=== PATIENT | female | born 1955 | race Caucasian/White ===

== ENCOUNTER → 2023-08-25 17:22 | Outpatient (REF) | payer MEDICARE, OTHER, SELFPAY | LOC: CLAB 17:22 | PROVIDERS: ATTENDING PHYSICIAN Orthopaedic Surgery; FAMILY PHYSICIAN Internal Medicine | DX: M18.11 Unilateral primary osteoarthritis of first carpometacarpal joint, right hand (principal) | CPT/HCPCS: 88304 ==

== ENCOUNTER → 2023-10-26 07:33 | Outpatient (REF) | payer MEDICARE, OTHER, SELFPAY ==
[2023-10-26 10:28] LABS: % Basophils 1.3 % (0-2); % Eosinophils 8.8 % (0-6); % Immature Granulocytes 0.8 % (0-0.5); % Monocytes 10.3 % (1.7-9.3); % Neutrophils 62.8 % (42.2-75.2); Absolute Basophils 0.1 10^3/uL (0-0.2); Absolute Eosinophils 0.4 10^3/uL (0-0.7); Absolute Lymphocytes 0.6 10^3/uL (1.2-3.4); Absolute Monocytes 0.4 10^3/uL (0.1-0.6); Absolute Neutrophils 2.5 10^3/uL (1.4-6.5); Hematocrit 39.7 % (37.0-47.0); Mean Corp Hgb Conc. 32.7 g/dL (33.0-37.0); Mean Corpuscular Hgb 28.7 pg (27.0-31.0); Mean Corpuscular Volume 87.6 fL (81.0-99.0); Mean Platelet Volume 10.7 fL (7.4-10.4); Nucleated Red Blood Cells % 0 %; Platelet Count 238 10^3/uL (130-400); Red Blood Cell Count 4.53 10^6/uL (4.20-5.40); Red Cell Dist. Width 12.7 % (11.5-14.5)
[2023-10-26 10:44] LABS: ALT (SGPT) 24 U/L (0-35); AST (SGOT) 27 U/L (14-36); Albumin 4.1 g/dl (3.5-5.0); Alkaline Phosphatase 75 U/L (38-126); Blood Urea Nitrogen 20 mg/dl (7-17); Calcium 9.6 mg/dl (8.4-10.2); Carbon Dioxide 29 mmol/L (22-30); Chloride 105 mmol/L (98-107); Glucose 91 mg/dl (70-99); HDL Cholesterol 73 mg/dl; Potassium 3.7 mmol/L (3.5-5.1); Sodium 137 mmol/L (135-145); Total Bilirubin 0.6 mg/dl (0.2-1.3); Total Protein 6.7 g/dl (6.3-8.2); Triglyceride 83 mg/dl (10-149); Very Low Density Lipoprotein 16 mg/dl (0-30); eGFR > 60.00
[2023-10-26 10:53] LABS: LDL Cholesterol, Calculated 82 mg/dl; Total Cholesterol 171 mg/dl (50-199)
[2023-10-26 10:55] LABS: Vitamin D, 25-OH*** 63.9 ng/mL (30-80)
== END ==
LOC: HWLAB 07:33
PROVIDERS: ATTENDING PHYSICIAN Internal Medicine
DX: I10 Essential (primary) hypertension (principal); E55.9 Vitamin D deficiency, unspecified; I70.90 Unspecified atherosclerosis
CPT/HCPCS: 36415; 80053; 80061; 82306; 85025

== ENCOUNTER → 2023-11-16 12:47 | Outpatient (REF) | payer MEDICARE, OTHER, SELFPAY | LOC: HWRAD 12:47 | PROVIDERS: ATTENDING PHYSICIAN Internal Medicine | DX: E04.1 Nontoxic single thyroid nodule (principal) | CPT/HCPCS: 76536 ==

== ENCOUNTER → 2024-01-02 10:55 | Outpatient (REF) | payer MEDICARE, OTHER, SELFPAY | LOC: HWWDC 10:55 | PROVIDERS: ATTENDING PHYSICIAN Internal Medicine | DX: Z12.31 Encounter for screening mammogram for malignant neoplasm of breast (principal) | CPT/HCPCS: 77063; 77067 ==

== ENCOUNTER → 2025-01-02 10:32 | Outpatient (REF) | payer MEDICARE, OTHER, SELFPAY | LOC: HWWDC 10:32 | PROVIDERS: ATTENDING PHYSICIAN Obstetrics & Gynecology Gynecology; FAMILY PHYSICIAN Nurse Practitioner Gerontology | DX: Z12.31 Encounter for screening mammogram for malignant neoplasm of breast (principal) | CPT/HCPCS: 77063; 77067 ==

== ENCOUNTER → 2025-01-28 09:48 | Outpatient (REF) | payer MEDICARE, OTHER, SELFPAY | LOC: HWRAD 09:48 | PROVIDERS: ATTENDING PHYSICIAN Obstetrics & Gynecology Gynecology; FAMILY PHYSICIAN Nurse Practitioner Gerontology | DX: Z15.09 Genetic susceptibility to other malignant neoplasm (principal) | CPT/HCPCS: 76830; 76856 ==

== ENCOUNTER 2025-03-04 06:27 | Day surgery (SDC) | payer MEDICARE, OTHER, SELFPAY | END 2025-03-04 10:45 | disposition home or self-care (01) | LOC: GI 06:27 | PROVIDERS: ATTENDING PHYSICIAN Internal Medicine | DX: Z12.11 Encounter for screening for malignant neoplasm of colon (principal); K64.4 Residual hemorrhoidal skin tags; K57.30 Diverticulosis of large intestine without perforation or abscess without bleeding; K64.8 Other hemorrhoids; Z15.09 Genetic susceptibility to other malignant neoplasm; K63.5 Polyp of colon | CPT/HCPCS: 45385; 88305 ==

== ENCOUNTER 2025-05-26 06:28 | Day surgery (SDC) | payer MEDICARE, OTHER, SELFPAY | END 2025-05-26 10:48 | disposition home or self-care (01) | LOC: GI 06:28 | PROVIDERS: ATTENDING PHYSICIAN Internal Medicine | DX: K44.9 Diaphragmatic hernia without obstruction or gangrene (principal); Z15.060 Genetic susceptibility to colorectal cancer; Z87.19 Personal history of other diseases of the digestive system; K20.80 Other esophagitis without bleeding | CPT/HCPCS: 43239; 88305; 88342 ==

== ENCOUNTER 2025-06-11 01:32 | Inpatient (IN) | payer MEDICARE, OTHER, SELFPAY ==
[2025-06-10 16:27] VITALS: BP 164/91
--- NOTE | 2025-06-10 17:29 | ED.GENMED ---
History of Present Illness
<Marlene Rdz PA-C - Last Filed: 06/10/25 23:46>
General
Chief Complaint: Abdominal Pain
Source: patient
Exam Limitations: none
Time Seen by Provider: 06/10/25 17:06
History of Present Illness
History of Present Illness:
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 Patient reports generalized abdominal discomfort which has been ongoing for the past 3 days.
She increased her fluid intake and symptoms seem to get better but are worsening today. She had an episode of vomiting after eating a sandwich today and continues to feel nauseous. She also reports feeling bloated and constipated. Last bowel
movement was 3 days ago. She took 4 pills of Dulcolax today without any improvement. She called her personnel clerk today and has an appointment scheduled in 3 days but decided to come to the ED due to her worsening symptoms. She denies any
difficulty urinating, fevers, chills, chest pain, shortness of breath. No prior abdominal surgeries. She had an endoscopy on 05/26 which showed a short segment of Lamb's esophagus and a small hiatal hernia.
Phy Exam
<Marlene Rdz PA-C - Last Filed: 06/10/25 23:46>
General Physical Exam
General Presentation: well appearing and no apparent distress
General Skin: warm and dry
General Habitus: normal and elderly
General Mental: alert
ENT Exam
ENT Exam: normocephalic
Pulmonary Exam
Pulmonary Exam: no respiratory distress
Gastrointestinal Exam
Gastrointestinal Exam: soft and other (Abdomen soft, mildly distended. Normoactive bowel sounds. +Tenderness to epigastrium, LUQ, and LLQ. No rebound or guarding.)
Neurological Exam
Neurological Exam: alert
Misty Coma Scale
Eye Opening: Spontaneous
Verbal Response: Oriented
Motor Response: Obeys Commands
GCS Total Score: 15
Skin Exam
Skin Exam: normal color and warm/dry
Psychiatric Exam
Psychiatric Exam: normal mood/affect
<Fuad Mann MD - Last Filed: 06/10/25 22:56>
Misty Coma Scale
GCS Total Score: 15
Course
<Marlene Rdz PA-C - Last Filed: 06/10/25 23:46>
Orders/Labs/Results
Orders:
Orders
06/10/25 17:26
Electrocardiogram (*1) Urgent
Reason for Study: Abdominal Pain
CT Abd/pel W Iv And Oral Contr Urgent
Comment:
Reason For Exam: generalized abd pain, bloating, constipation
EKG- Treatment ONCE
Iohexol [Omnipaque] See Protocol PO NOW STA
Ondansetron Injectable [Zofran] 4 mg IV NOW STA
06/10/25 18:03
Complete Blood Count/With Diff Urgent
Comprehensive Metabolic Panel Urgent
Lipase Urgent
Troponin I Urgent
06/10/25 18:44
0.9% Sodium Chloride 500 ml [Nss] 500 ml IV BOLUS
Potassium Chloride [KCl] 40 meq PO NOW STA
06/10/25 21:53
0.9% Sodium Chloride 500 ml [Nss] 500 ml IV BOLUS
Ondansetron Injectable [Zofran] 4 mg IV NOW STA
06/10/25 21:54
ColoRectal Surgery Consult Urgent
Consulting Provider: Marquez Garner
Was physician already notified: Yes
06/10/25 21:59
Bupivacaine Pf 0.5% [Sensorcaine 0.5% Single Dose] 30 ml .ROUTE .STK-MED ONE
Dexamethasone Pf [Decadron] 10 mg .ROUTE .STK-MED ONE
06/10/25 22:01
Fentanyl Citrate/Pf [Sublimaze] 25 mcg IV [id number] PRN
HYDROmorphone [Dilaudid] 0.25 mg IV PACU-Q5MPRN PRN
HYDROmorphone [Dilaudid] 0.5 mg IV PACU-Q5MPRN PRN
Ondansetron Injectable [Zofran] 4 mg IV PACU-ONCEPRN PRN
Prochlorperazine [Compazine] 5 mg IV PACU-ONCEPRN PRN
Notify MD As Directed
Notify physician if: for SDS patients with known or suspected sleep obstructive sleep apnea, monitor in the
PACU.
Notify MD for any apneic/desaturation episodes
O2 Therapy [RESP] Urgent
Titrate/Wean O2 to maintain O2 sat greater than (%): 92
Special Instructions: -Provide supplemental oxygen to achieve O2 sat of 92% or greater.
-After 15 min, may wean O2 and discontinue if patient is able to maintain O2 sat of 92%
or greater during recovery period.
If patient is a discharge home, without oxygen therapy, notify anestheiologist if
unable to maintain O2 SAT of 92% or greater on room air for MD clearance.
06/10/25 22:04
Lactate Level [Lactic Acid] Urgent
06/10/25 22:15
Normosol (Mult Electrolytes) [Normosol-R/Plasmalyte-A] 1,000 ml IV PER PROTOCOL
06/10/25 23:04
Fentanyl Citrate/Pf [Sublimaze] 100 mcg .ROUTE .STK-MED ONE
06/10/25 23:06
Dexamethasone Sod Phosphate [Decadron] 20 mg .ROUTE .STK-MED ONE
Lidocaine HCl/Pf [Xylocaine-Mpf 1% Vial] 50 mg .ROUTE .STK-MED ONE
Ondansetron Injectable [Zofran] 4 mg .ROUTE .STK-MED ONE
Phenylephrine HCl/0.9% NaCl [Maulik-Synephrine] 1,000 mcg .ROUTE .STK-MED ONE
Propofol [Diprivan] 20 ml .ROUTE .STK-MED
Rocuronium [place] [Rocuronium] 50 mg .ROUTE .STK-MED ONE
Succinylcholine Chloride [Succinylcholine] 200 mg .ROUTE .STK-MED ONE
ePHEDrine SULFATE [Emerphed] 50 mg .ROUTE .STK-MED ONE
06/10/25 23:12
Piperacillin/Tazo 3.375 Gram [Zosyn] 3.375 gram in 50 ml .ROUTE .STK-MED
Abnormal Lab Results
06/10/25
18:03
Absolute Neuts (auto) 7.2 H 10^3/uL
(1.4-6.5)
Absolute Lymphs (auto) 0.4 L 10^3/uL
(1.2-3.4)
Neutrophils % 90.0 H %
(42.2-75.2)
Lymphocytes % 4.4 L %
(20.5-51.1)
Sodium 131 L mmol/L
(135-145)
Potassium 3.1 L mmol/L
(3.5-5.1)
Chloride 92 L mmol/L
(98-107)
Glucose 112 H mg/dl
(70-99)
06/10/25 18:03
06/10/25 18:03
Vital Signs
Initial and Last Documented VS:
Initial Vital Signs
Temp Pulse Resp BP Pulse Ox
98.1 F 91 20 164/91 98
06/10/25 16:27 06/10/25 16:27 06/10/25 16:27 06/10/25 16:27 06/10/25 16:27
Last Documented Vital Signs
Temp Pulse Resp BP Pulse Ox
98.7 F 86 24 137/69 96
06/10/25 22:10 06/10/25 22:30 06/10/25 22:30 06/10/25 22:00 06/10/25 22:30
<uFad Mann MD - Last Filed: 06/10/25 22:56>
Orders/Labs/Results
Orders:
Orders
06/10/25 17:26
Electrocardiogram (*1) Urgent
Reason for Study: Abdominal Pain
CT Abd/pel W Iv And Oral Contr Urgent
Comment:
Reason For Exam: generalized abd pain, bloating, constipation
EKG- Treatment ONCE
Iohexol [Omnipaque] See Protocol PO NOW STA
Ondansetron Injectable [Zofran] 4 mg IV NOW STA
06/10/25 18:03
Complete Blood Count/With Diff Urgent
Comprehensive Metabolic Panel Urgent
Lipase Urgent
Troponin I Urgent
06/10/25 18:44
0.9% Sodium Chloride 500 ml [Nss] 500 ml IV BOLUS
Potassium Chloride [KCl] 40 meq PO NOW STA
06/10/25 21:53
0.9% Sodium Chloride 500 ml [Nss] 500 ml IV BOLUS
Ondansetron Injectable [Zofran] 4 mg IV NOW STA
06/10/25 21:54
ColoRectal Surgery Consult Urgent
Consulting Provider: Marquez Garner
Was physician already notified: Yes
06/10/25 21:59
Bupivacaine Pf 0.5% [Sensorcaine 0.5% Single Dose] 30 ml .ROUTE .STK-MED ONE
Dexamethasone Pf [Decadron] 10 mg .ROUTE .STK-MED ONE
06/10/25 22:01
Fentanyl Citrate/Pf [Sublimaze] 25 mcg IV [id number] PRN
HYDROmorphone [Dilaudid] 0.25 mg IV PACU-Q5MPRN PRN
HYDROmorphone [Dilaudid] 0.5 mg IV PACU-Q5MPRN PRN
Ondansetron Injectable [Zofran] 4 mg IV PACU-ONCEPRN PRN
Prochlorperazine [Compazine] 5 mg IV PACU-ONCEPRN PRN
Notify MD As Directed
Notify physician if: for SDS patients with known or suspected sleep obstructive sleep apnea, monitor in the
PACU.
Notify MD for any apneic/desaturation episodes
O2 Therapy [RESP] Urgent
Titrate/Wean O2 to maintain O2 sat greater than (%): 92
Special Instructions: -Provide supplemental oxygen to achieve O2 sat of 92% or greater.
-After 15 min, may wean O2 and discontinue if patient is able to maintain O2 sat of 92%
or greater during recovery period.
If patient is a discharge home, without oxygen therapy, notify anestheiologist if
unable to maintain O2 SAT of 92% or greater on room air for MD clearance.
06/10/25 22:04
Lactate Level [Lactic Acid] Urgent
06/10/25 22:15
Normosol (Mult Electrolytes) [Normosol-R/Plasmalyte-A] 1,000 ml IV PER PROTOCOL
06/10/25 23:04
Fentanyl Citrate/Pf [Sublimaze] 100 mcg .ROUTE .STK-MED ONE
06/10/25 23:06
Dexamethasone Sod Phosphate [Decadron] 20 mg .ROUTE .STK-MED ONE
Lidocaine HCl/Pf [Xylocaine-Mpf 1% Vial] 50 mg .ROUTE .STK-MED ONE
Ondansetron Injectable [Zofran] 4 mg .ROUTE .STK-MED ONE
Phenylephrine HCl/0.9% NaCl [Maulik-Synephrine] 1,000 mcg .ROUTE .STK-MED ONE
Propofol [Diprivan] 20 ml .ROUTE .STK-MED
Rocuronium [place] [Rocuronium] 50 mg .ROUTE .STK-MED ONE
Succinylcholine Chloride [Succinylcholine] 200 mg .ROUTE .STK-MED ONE
ePHEDrine SULFATE [Emerphed] 50 mg .ROUTE .STK-MED ONE
06/10/25 23:12
Piperacillin/Tazo 3.375 Gram [Zosyn] 3.375 gram in 50 ml .ROUTE .STK-MED
Abnormal Lab Results
06/10/25
18:03
Absolute Neuts (auto) 7.2 H 10^3/uL
(1.4-6.5)
Absolute Lymphs (auto) 0.4 L 10^3/uL
(1.2-3.4)
Neutrophils % 90.0 H %
(42.2-75.2)
Lymphocytes % 4.4 L %
(20.5-51.1)
Sodium 131 L mmol/L
(135-145)
Potassium 3.1 L mmol/L
(3.5-5.1)
Chloride 92 L mmol/L
(98-107)
Glucose 112 H mg/dl
(70-99)
06/10/25 18:03
06/10/25 18:03
Vital Signs
Initial and Last Documented VS:
Initial Vital Signs
Temp Pulse Resp BP Pulse Ox
98.1 F 91 20 164/91 98
06/10/25 16:27 06/10/25 16:27 06/10/25 16:27 06/10/25 16:27 06/10/25 16:27
Last Documented Vital Signs
Temp Pulse Resp BP Pulse Ox
98.7 F 86 24 137/69 96
06/10/25 22:10 06/10/25 22:30 06/10/25 22:30 06/10/25 22:00 06/10/25 22:30
Niralilt;Marlene Rdz PA-C - Last Filed: 06/10/25 23:46>
MDM/Problems Addressed
Differential Diagnosis Includes:
69yoF here with abd pain, distention, and constipation x 3 days. Worsening today and now has vomiting. She is hypertensive but otherwise stable vital signs. Abdomen is mildly distended without signs of peritonitis. Differential diagnosis includes
but is not limited to: Constipation, fecal impaction, SBO, diverticulitis
Initial ED plan: Check abdominal labs, troponin/EKG, and CT abdomen with IV/p.o. contrast. IV Zofran and fluid bolus for symptoms.
<Marlene Rdz PA-C - Last Filed: 06/10/25 23:46>
*Pulse Oximetry
SaO2: 98
Oxygen Mode of Delivery: Room air
Patient hypoxic: no
*EKG
Interpreted by ED Provider?: Yes
EKG Intrepretation Date: 06/10/25
Heart Rate: 75
Rate: normal
Rhythm: sinus
[place]: normal axis
Interval: normal interval
QRS Pattern: normal QRS
Ischemia: non-specific ST changes
*Critical Care Note
Total Time (30-74mins, 75-104mins- exclusive of procedures): Not Applicable
<Marlene Rdz PA-C - Last Filed: 06/10/25 23:46>
Update Note
Update Note:
CT shows findings compatible with a cecal volvulus. Case discussed with colorectal surgeon, Dr. Garner. Patient will be taken to the OR tonight for colectomy. Patient and daughter updated at bedside.
ED Attending Note
<Marlene Rdz PA-C - Last Filed: 06/10/25 23:46>
-
Portions of this chart may have been created with voice recognition software.� Occasional wrong word or��sound alike� substitutions may have occurred due to the inherent limitations of voice recognition software.
<Fuad Mann MD - Last Filed: 06/10/25 22:56>
ED Attending Note
Patient seen and examined by attending physician: Yes
ED Attending Note:
I have seen and evaluated the patient with a [id number] encounter. I have spoken to the advance practicer provider and involved in the medical history, the physical exam, medical decision making.
Evaluation and management service: agree unless noted differently below.
Results interpretation: agree unless noted differently below.
Focused HPI: 69-year-old female with history as noted presents for evaluation of constipation and abdominal pain over the past few days associated with nausea and bloating.
Physical exam: Awake and alert, nontoxic. Hypertensive but otherwise normal vitals. Abdomen soft, mildly distended, diffuse tenderness but not peritoneal.
Medical Decision Makin-year-old female presents with abdominal pain with constipation and nausea, bloating. Labs here were significant for mild hypokalemia. CT shows findings concerning for cecal volvulus. PA discussed with colorectal
surgery, patient will need OR for colectomy. Admit for continued management.
Discharge Plan
Departure
Patient Disposition: Admit
Date of Disposition: 06/10/25
Time of Disposition: 21:53
Presentation/result/management discussed w/ accepting MD/DO: Dr. Garner
Discharge Problem:
Cecal volvulus
Referrals:
Rut Renteria NP [Family Provider, General]
Interventions
Interventions:
*General Assessment Last Done: 06/10/25 16:27
*Neglect/Abuse Screening Last Done: 06/10/25 16:27
*ED COVID-19 Vaccine History Last Done: 06/10/25 22:10
*ED Influenza Vaccine History Last Done: 06/10/25 22:10
[facility] Fall Risk Assessment Tool Last Done: 06/10/25 21:41
*Risk Screen - Suicide (C-SSRS) Last Done: 06/10/25 22:30
*Nursing Disposition Last Done: 06/10/25 23:06
RN-Zywqan-Owszcuuogp Assessment Last Done: 06/10/25 18:18
Discharge Date and Time
Discharge Date/Time: 06/10/25 23:06
Print Language: TAJIK
[2025-06-10] MEDS: OMNIPAQUE 50 ML PO (18:03)
[2025-06-10] MEDS: ZOFRAN 4 MG IV ×2 (18:03→21:57)
[2025-06-10 18:12] LABS: Hematocrit 39.5 % (37.0-47.0); Hemoglobin 13.7 g/dL (12.0-16.0); Mean Corp Hgb Conc. 34.7 g/dL (33.0-37.0); Mean Corpuscular Volume 84.6 fL (81.0-99.0); Nucleated Red Blood Cells % 0 %; Platelet Count 246 10^3/uL (130-400); Red Cell Dist. Width 12.6 % (11.5-14.5)
[2025-06-10 18:18] VITALS: BMI 28.9
[2025-06-10 18:40] LABS: ALT (SGPT) 17 U/L (0-35); AST (SGOT) 24 U/L (14-36); Albumin 4.6 g/dl (3.5-5.0); Alkaline Phosphatase 88 U/L (38-126); Blood Urea Nitrogen 14 mg/dl (7-17); Calcium 9.4 mg/dl (8.4-10.2); Carbon Dioxide 29 mmol/L (22-30); Chloride 92 mmol/L (98-107); Estimated Creatinine Clearance 84 ml/min; Glucose 112 mg/dl (70-99); Lipase 186 U/L (23-300); Potassium 3.1 mmol/L (3.5-5.1); Sodium 131 mmol/L (135-145); Total Protein 7.3 g/dl (6.3-8.2); eGFR > 60.00
[2025-06-10 18:57] LABS: Troponin I < 0.012 ng/ml
[2025-06-10] MEDS: KCL 40 MEQ PO (18:59)
[2025-06-10] MEDS: NSS 500 IV ×2 (19:00→21:57)
[2025-06-10 20:50] VITALS: BP 149/75
[2025-06-10 21:41] VITALS: BP 140/73
[2025-06-10 22:00] VITALS: BP 137/69
--- NOTE | 2025-06-10 23:02 | W.PN.ADMIT ---
Addendum entered and electronically signed by Marquez Garner MD 06/10/25 23:25:
Other risks also discussed included anastomotic issues and potential for stoma.
Original Note:
Progress Note - Admit
Progress Note - Admit
Full H and P to be dictated.
Assessment/Plan: 69-year-old fairly healthy female with a known diagnosis of Easton syndrome with acute cecal volvulus confirmed on CT scan with resultant abdominal pain and distention as well as nausea and vomiting. CT shows a distended (10 cm)
cecum and left upper quadrant and was read as cecal volvulus. No pneumatosis. Vitals and blood work are reasonable and she is not an extremis. She has moderate distention of the abdomen on exam. Has mild epigastric tenderness. I discussed
situation with the patient and her family at the bedside. I recommended an open right colectomy. Risks and benefits were discussed. Risks described included but not limited to bleeding, infection, ureteral injury, bowel or solid organ injury,
hernia formation, recurrence of the volvulus, and anesthetic risks. She has agreed to proceed. I did discuss that elective prophylactic subtotal colectomy with synchronous hysterectomy is sometimes considered for Easton syndrome, but my leaning it
not to pursue either here and now. I did touch base with Dr. Gamble (her GI) and Dr. Godwin (loan consultant solutions operator) regarding the circumstances and they concurred. Anticipate med surg postoperatively.
[2025-06-11] VITALS (13 sets, daily range): BP systolic 111–150; BP diastolic 61–81; PULSE 83; BMI 29.7
--- NOTE | 2025-06-11 01:05 | W.IMMPOSTOP ---
Surgical Immed Post Op Note
-
Primary Surgeon: Suzanne Garner MD
Assisting Surgeon: none
Pre-op Diagnosis: cecal volvulus
Post-op Diagnosis: same
Procedure Performed: right colectomy
Anesthesia Type: general plus local
Specimen / Cultures: right colon
Estimated Blood Loss: 30 cc
Complications: no immediate
Operative Findings: distended volvulized non-perforated cecum/R colon
NGT in place--confirmed to be in stomach intraoperatively.
Sainz in bladder.
Will send to med surg.
--- NOTE | 2025-06-11 02:00 | PTCARENOTE ---
[facility]. Pt AAOx3, vss. Admission assessment completed. NGT attached to low intermittent suction per order. Sainz draining clear yellow urine. Pt c/o 07/29 with movement. IVF initiated per order. Pt oriented to room,
call nj within reach, bed locked and in lowest position. Plan of care reviewed with pt and family at bedside. All questions answered. Care ongoing.
[2025-06-11] MEDS: NORMOSOL-R/PLASMALYTE-A 1000 IV ×3 (02:15→23:58)
[2025-06-11] MEDS: TORADOL 10 MG IV ×4 (02:15→20:28)
[2025-06-11] MEDS: OFIRMEV 100 IV ×4 (05:14→23:49)
[2025-06-11] MEDS: ZOSYN 50 IV ×3 (05:35→17:21)
[2025-06-11 06:39] LABS: Hematocrit 34.8 % (37.0-47.0); Hemoglobin 12.5 g/dL (12.0-16.0); Mean Corp Hgb Conc. 35.9 g/dL (33.0-37.0); Mean Corpuscular Volume 82.1 fL (81.0-99.0); Nucleated Red Blood Cells % 0 %; Platelet Count 215 10^3/uL (130-400); Red Cell Dist. Width 12.2 % (11.5-14.5)
[2025-06-11 07:04] LABS: Blood Urea Nitrogen 10 mg/dl (7-17); Calcium 8.1 mg/dl (8.4-10.2); Carbon Dioxide 24 mmol/L (22-30); Chloride 96 mmol/L (98-107); Estimated Creatinine Clearance 85 ml/min; Glucose 130 mg/dl (70-99); Magnesium 2.0 mg/dl (1.6-2.3); Potassium 3.1 mmol/L (3.5-5.1); Sodium 128 mmol/L (135-145); eGFR > 60.00
--- NOTE | 2025-06-11 08:15 | W.PN.CRS1 ---
Today's Communication / Plan
-
Replace K.
Continue current measures.
OOB.
Lovenox.
Assessment/Plan
-
POD 0/1.
1. good pain control. Await bowel function.
2. vitals reasonable. Hypokalemia with K of 3.1. Will replace with K rider.
3. continue estevez and NGT.
4. OOB.
5. Lovenox this evening.
Subjective Data
Procedure
R colectomy 06/11/25 (finished morning of 06/11/25)
Subjective Data
Date of Service: June 11, 2025
Pain control reasonable.
No flatus.
Objective Data
-
Vital Signs
Temp Pulse Resp BP Pulse Ox
99.3 F 78 16 124/64 95
06/11/25 07:35 06/11/25 07:35 06/11/25 07:35 06/11/25 07:35 06/11/25 07:35
Intake & Output
06/10/25 06/11/25 06/12/25
06:59 06:59 06:59
Intake Total 1380 / 1380
Output Total 150 / 150
Balance 1230 / 1230
Intake:
IV fluids (Total) 1200 / 1200
IV piggybacks 150 / 150
Amount instilled into GI Tube ( 30 / 30
Total)
[place] Sump 30 / 30
Output:
Gastrointestinal tube output ( 75 / 75
Total)
[place] Sump 75 / 75
Urine, Estevez 75 / 75
Lab Results
06/11/25 06:08
06/11/25 06:08
Physical Exam
-
General: No Acute Distress
Chest: Clear
Cardiovascular: Regular Rate & Rhythm
Abdomen: Soft, Distended (mild) and Tender (mild incisional)
Extremities: No Calf Tenderness
Skin: Warm and Good Color
Incision: No Skin Erythema and Other (some shadowing (expected with martell))
[2025-06-11] MEDS: NSS (PRESERVATIVE FREE) 10 ML IV (08:36)
[2025-06-11] MEDS: PROTONIX IV 40 MG IV (08:36)
[2025-06-11] MEDS: KCL 270 MEQ IV (08:37)
[2025-06-11] MEDS: VALIUM INJECTION 2 MG IV (09:34)
[2025-06-11] MEDS: CRESTOR PO (10:40)
[2025-06-11] MEDS: LOVENOX 40 MG SC (17:21)
[2025-06-11] MEDS: OLOPATADINE 0.1% OPHTHALMIC SOLUTION 1 DROP OPHTH (20:30)
[2025-06-12] VITALS (60 sets, daily range): BP systolic 95–149; BP diastolic 49–77; BMI 29.8
[2025-06-12] MEDS: ZOSYN 50 IV (00:09)
[2025-06-12 01:23] LABS: Glucose - Point of Care 148 mg/dl (70-99)
--- NOTE | 2025-06-12 01:36 | W.PN.UPDATE ---
Update Note
Progress Note Update
OPERA SINGER
-Patient passed out/ diaphoretic/ pale after passing a bm with a huge amount of blood while she is using the bsc.
-Patient was arousable by the time of OPERA SINGER arrived to the room. BP 100/61. hr 68.
-Abdomen is soft non tender on the exam.
-2units of blood ordered , I liter NSS bolus open wide. Stat CBC, type & screen ordered.
-[place] animal control officer contacted and new recommendations received to give TXA 1 gm, transfer to ICU, and Surgeon/Dr German is coming to see the patient. Daughter at bedside and updated.
--- NOTE | 2025-06-12 01:48 | RR ---
Addendum entered by Rosario Perez RN 06/12/25 02:19:
Pt passed over 1L of burgundy liquid via rectum
Original Note:
Pt passed moderate amount of burgundy liquid w/clots via rectum. Expressed the desire to get on BSC. Assisted to BSC x2, pt began passing copious amount of liquid via rectum. Vagaled, diaphoretic, and sudden change in color --> extremely pale.
PICK UP OPERATOR initiated. Able to arouse patient, assisted back to bed. EKG and accucheck obtained. BP 103/70 HR 68, 92% on RA.
A Rapid Response was called on this patient, please see Rapid Response form.
[2025-06-12 01:49] LABS: Hematocrit 26.0 % (37.0-47.0); Hemoglobin 9.0 g/dL (12.0-16.0); Mean Corp Hgb Conc. 34.6 g/dL (33.0-37.0); Mean Corpuscular Volume 83.6 fL (81.0-99.0); Platelet Count 223 10^3/uL (130-400); Red Cell Dist. Width 12.6 % (11.5-14.5)
[2025-06-12] MEDS: TRANEXAMIC ACID 100 IV (01:53)
[2025-06-12 01:57] LABS: APTT 27.1 Sec (23.4-35.0); INR 1.35; PT 16.4 Sec (11.4-14.6)
[2025-06-12] MEDS: NSS 1000 IV (02:04)
--- NOTE | 2025-06-12 02:10 | PTCARENOTE ---
RR called on pt, this RN responded to RR. Pt in bed, pale went to the BR had a large bloody BM. Tsf to ICU. Pt is AAOx3, anxious. NSR on the monitor. Received pt on 3L NC O2 sat 97%, lungs diminished/coarse. Right nare NGT, to low intermittent
suction. Sainz in place, hygiene provided. Midline incision dressing assessed by Dr. German. Tranexamic acid given. 2 units PRBCs ordered. CHG bath provided. SCDs and TEDs in place. Daughter at bedside. Call nj in reach. Safe environment maintained.
[2025-06-12 02:12] LABS: Blood Urea Nitrogen 14 mg/dl (7-17); Calcium 7.5 mg/dl (8.4-10.2); Carbon Dioxide 25 mmol/L (22-30); Chloride 103 mmol/L (98-107); Estimated Creatinine Clearance 73 ml/min; Glucose 129 mg/dl (70-99); Magnesium 2.4 mg/dl (1.6-2.3); Potassium 3.3 mmol/L (3.5-5.1); Sodium 132 mmol/L (135-145); eGFR > 60.00
--- NOTE | 2025-06-12 02:33 | W.PN.UPDATE ---
Update Note
Progress Note Update
Informed by [place] DRILLER MULTIPLE SPINDLE that patient had a rapid due to large bloody bowel movement, appeared pale and nauseous and had syncopal episode. Bowel movement occurred on a commode and patient was immediately transferred to the bed. Stat labs sent. Given
TXA and 2 PRBC ordered, liter bolus hung. Repeat Hb 9.0. Vitals at that time were BP 100/60, HR 68. Patient was seen and examined. Currently, feels a little nauseous, but suspects it is related to her anxiety. Denies abdominal pain. Denies
dizziness or lightheadedness. This was her first BM since the surgery. No BMs since the occurence. BP 100/70, HR 70, afebrile, ABD soft, mildly tender near incision, nondistended, Aquacel dressing with bloody strikethrough but stable.
- Suspect that patient had vasovagal symptoms related to large bloody BM; I am less concerned about active bleeding as vitals have been stable over the last hour and no further blood per rectum, but will need to be closely monitored
�Hold Lovenox and Toradol; continue with PRBC x 2; repeat Hb every 6 hours until no suspicion for further bleeding; coags checked and WNL
�Continue n.p.o. with IVF
�Continue close monitoring with continuous vitals in the ICU
�Discussed with [place] DRILL[employer]IP[employer] SP[employer]LE, nurse, patient and patient's daughter; I warned the patient that her next bowel movements will likely be bloody as well, but will hopefully be less bloody with each subsequent BM; if they continue to be mostly blood, may
need a repeat procedure, such as colonoscopy versus surgery; however, for anastomotic bleeding, this is rare as well as most bleeding stops with nonoperative measures
[2025-06-12] MEDS: KCL 270 MEQ IV (03:16)
--- NOTE | 2025-06-12 03:26 | PTCARENOTE ---
1st unit PRBCs hanging, 15 min VS check complete, VSS.
--- NOTE | 2025-06-12 05:40 | PTCARENOTE ---
2nd unit PRBCs hanging, 15 min VS check complete, VSS.
[2025-06-12 06:40] LABS: Hematocrit 26.2 % (37.0-47.0); Hemoglobin 9.3 g/dL (12.0-16.0); Mean Corp Hgb Conc. 35.5 g/dL (33.0-37.0); Mean Corpuscular Volume 83.4 fL (81.0-99.0); Nucleated Red Blood Cells % 0 %; Platelet Count 202 10^3/uL (130-400); Red Cell Dist. Width 12.7 % (11.5-14.5)
[2025-06-12] MEDS: NSS (PRESERVATIVE FREE) 10 ML IV (07:45)
[2025-06-12] MEDS: PROTONIX IV 40 MG IV (07:46)
--- NOTE | 2025-06-12 08:33 | PTCARENOTE ---
Received pt awake and alert.+GUZMAN.Speech appropriate.Denies pain at this time.SR noted.# 2 PRBC transfusion completed.Decreased breath sounds bibasilar.POX 95% RA.NPO.NGT intact to intermittent suction.No BM.Sainz draining gama urine.Midline
incision intact with old shadowing on dressing.Pt's daughter at bedside.Plan of care discussed.
[2025-06-12 08:43] LABS: Hematocrit 28.1 % (37.0-47.0); Hemoglobin 9.9 g/dL (12.0-16.0)
[2025-06-12 09:26] LABS: Blood Urea Nitrogen 15 mg/dl (7-17); Calcium 7.3 mg/dl (8.4-10.2); Carbon Dioxide 27 mmol/L (22-30); Chloride 107 mmol/L (98-107); Estimated Creatinine Clearance 85 ml/min; Glucose 95 mg/dl (70-99); Potassium 3.6 mmol/L (3.5-5.1); Sodium 134 mmol/L (135-145); eGFR > 60.00
[2025-06-12] MEDS: NORVASC PO (09:27)
--- NOTE | 2025-06-12 09:58 | W.PN.CRS1 ---
Today's Communication / Plan
-
Continue ICU care/current measures.
Serial H&H's.
Assessment/Plan
-
POD 1/2.
1. Postoperative rectal bleeding with a syncopal episode. Suspect anastomotic source. Given TXA yesterday. Holding Toradol, Lovenox, and ASA. Continue knee-high teds and SCDs. Serial hemoglobins. Hemoglobin at its lowest was 9.0 from 12.5.
With 2 units of blood this came up to 9.9. If there is ongoing evidence of significant active bleeding, will need to consider CT angio or colonoscopy. For now we will watch. All the above discussed with the patient and her family(her daughter is
an RN).
2. Continue current measures including NG tube, Sainz, n.p.o. with ice chips. Parameters placed for BP meds.
3. Drum Sprayer to evaluate. Appreciate help.
4. Hypokalemia resolved.
Subjective Data
Procedure
R colectomy 06/11/25 (finished morning of 06/11/25)
Subjective Data
Date of Service: June 12, 2025
Events overnight noted. Currently in ICU.
Patient awake and comfortable. Daughter and in room.
No significant pain.
No BMs since last night.
Denies nausea.
Objective Data
-
Vital Signs
Temp Pulse Resp BP Pulse Ox
98.4 F 75 14 113/57 95
06/12/25 08:19 06/12/25 08:19 06/12/25 08:19 06/12/25 08:19 06/12/25 08:00
Intake & Output
06/11/25 06/12/25 06/13/25
06:59 06:59 06:59
Intake Total 1380 / 1380 2230 / 2230 250 / 250
Output Total 150 / 150 2660 / 2660
Balance 1230 / 1230 -430 / -430 250 / 250
Intake:
IV fluids (Total) 1200 / 1200 1000 / 1000
NSS bolus 1000 / 1000
IV piggybacks 150 / 150 420 / 420
Amount instilled into GI Tube ( 60 / 60
Total)
[place] Sump 60 / 60
Blood Products 500 / 500
Packed red blood cells 500 / 500
Blood Product Amount Infused ( 250 / 250 250 / 250
mL)
Packed Rbc Leukoreduced Unit 0 / 0 250 / 250
[id number]
Packed Rbc Leukoreduced Unit 250 / 250
[id number]
Output:
Gastrointestinal tube output ( 75 / 75 350 / 350
Total)
[place] Sump 75 / 75 350 / 350
Urine, Sainz 75 / 75 2310 / 2310
Other:
Number of unmeasured liquid
stools
Rectum 1
Lab Results
06/12/25 08:30
Physical Exam
-
General: No Acute Distress
Chest: Clear
Cardiovascular: Regular Rate & Rhythm
Abdomen: Soft, Non Distended and Tender (Mild incisional tenderness.)
Skin: Warm and Good Color
Wound: Other (Dressings changed. Incision intact. Мария in place. Old blood noted. No skin erythema.)
[2025-06-12] MEDS: NORMOSOL-R/PLASMALYTE-A 1000 IV ×2 (10:48→21:41)
--- NOTE | 2025-06-12 12:30 | PTCARENOTE ---
Pt assessed.No change in assessment noted.
--- NOTE | 2025-06-12 12:37 | CON.INTV ---
Consultation
Consultation Request
Date/Time Consultation Requested: 06/12/2025
Date/Time Consultation Performed: 06/12/2025
Requesting Provider: Dr. Garner
Performing Provider: Dr. David Del Real
Reason for Consultation: Status post colectomy-postoperative management
Medical History
-
History of Present Illness:
69-year-old woman with past medical history of Easton syndrome, Lamb's esophagus, hypertension, GERD who was brought into the emergency room with abdominal discomfort and distention associated with vomiting and nausea.
Patient admits to constipation prior to admission.
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
No evidence for perforation.
She was evaluated by colorectal surgery. She was taken to the operating room emergently, underwent right hemicolectomy-06/11/2025.
She was transferred to the floors per
On 06/12/2025 [employer] rapid response was called as the patient was diaphoretic, pale passed a bloody BM.
Patient had a syncopal episode.
She was given 2 units of packed red blood cells and fluid resuscitation.
Tranexamic acid 1 g was given.
Bowel movement happen while the patient was in the commode-there is suspicion for vasovagal reaction.
Currently denies significant abdominal pain
Denies dizziness
No further BMs at this point
Past Medical History
Past Medical History: Other (See assessment and plan)
Social History
Tobacco: Non-smoker
Alcohol: None
Drug: None
Family History
Family History: Reviewed & Not Pertinent
Allergies / Home Medications
Allergies
Allergy/AdvReac Type Severity Reaction Status Date / Time
No Known Allergies Allergy Verified 06/10/25 16:31
Home Medications
�Medication �Instructions �Recorded �Confirmed �Last Taken �Type
amlodipine 5 mg tablet 5 mg PO DAILY 06/11/25 06/11/25 06/09/25 History
aspirin 81 mg tablet 81 mg PO DAILY 1206/11/25 06/09/25 History
azelastine 0.05 % eye drops 1 drp ophthalmic (eye) BID 06/11/25 06/11/25 06/09/25 History
magnesium glycinate 120 mg (as 120 mg PO QHS 06/11/25 06/11/25 Unknown History
glycinate) capsule
olmesartan-hydrochlorothiazide 40.25 tab PO 1XD 06/11/25 06/11/25 06/09/25 History
omeprazole 30 mg PO 1XD 06/11/25 06/11/25 06/09/25 History
rosuvastatin 5 mg tablet 5 mg PO MUST ENTER TIMES 06/11/25 06/11/25 Unknown History
vitamin D3-vitamin K2 4,000 units PO 1XD 06/11/25 06/11/25 06/09/25 History
Review of Systems
-
History Source: Patient
All other systems: Negative unless noted
Vitals / Labs / Diagnostic Testing
Vital Signs
Temp Pulse Resp BP Pulse Ox
98.4 F 69 16 125/56 95
06/12/25 08:19 06/12/25 12:15 06/12/25 12:15 06/12/25 12:00 06/12/25 12:15
Lab Data
06/12/25 08:30
Laboratory Results
06/12/25
01:33
PT 16.4 H
INR 1.35
APTT 27.1
Diagnostic Testing:
Physical Exam
-
HEENT: Normocephalic
Cardiovascular: S1/S2
Respiratory: Non-Labored Respirations
GI: Soft, Non Distended, Other (Absent bowel sounds. Incision is clean and dressed.) and Other (NG tube in place)
Neurology: Awake and Oriented
Skin: Warm
General: Comfortable
Assessment
-
69-year-old woman with past medical history noted, initially admitted 06/11/2025 with abdominal distention, abdominal pain. Found to have cecal volvulus. Emergently taken to the operating room and she underwent right hemicolectomy. Transferred to
the floors. Overnight developed a bloody bowel movement with subsequent syncopal episode. Slightly hypotensive that recovered with IV fluid and transfusion. Transferred to the critical care unit for further monitoring.
Acute blood loss anemia-postoperative bloody BM.
Status post transfusion
Syncopal episode after bloody BM postoperatively-possible vasovagal reaction after large bloody bowel movement.
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
Conditions present prior admission:
History of Easton syndrome
Lamb's esophagus
Hypercholesterolemia
Hypertension
Assessment and plan:
At this point, patient seems to have stabilized.
After confusion hemoglobin remains on the nines.
No further bloody BMs
Agree with holding antiplatelets and anticoagulants for now.
Hold antihypertensive
Serial H&H
Serial abdominal exams
NG tube in place
N.p.o. per surgery
-
Pain control with narcotics as needed-monitor respiratory status closely
-
Gentle IV fluids
Renal function is normal
Hyponatremia noted
Hypokalemia resolved
Daily labs
-
DVT prophylaxis with SCDs
-
Continue ICU monitoring for the next 24 hours.
[2025-06-12] MEDS: OLOPATADINE 0.1% OPHTHALMIC SOLUTION OPHTH ×2 (13:00→20:45)
--- NOTE | 2025-06-12 13:43 | CM ---
Reviewed chart and met with and daughter bedside. Pt currently post op, has NG tube.
Lives with in 2 SH, has first floor half bath, full flight to second floor bedroom and full bath.
Independent in ADLs, personal care and ambulation at baseline, no assistive device, no DME.
Confirms prescription coverage.
Hx HH unsure of agency, no hx SNF
PCP: Rtu Renteria
Pharmacy:[facility]
Anticipate discharge home, CM will continue to follow for all discharge planning needs.
[2025-06-12 14:07] LABS: Hematocrit 27.7 % (37.0-47.0); Hemoglobin 9.9 g/dL (12.0-16.0)
--- NOTE | 2025-06-12 16:23 | PTCARENOTE ---
Pt assessed.No change in assessment noted.
--- NOTE | 2025-06-12 19:30 | PTCARENOTE ---
Received pt. at 1900. Pt. currently awake, alert, and oriented. Denies pain/discomfort. Afebrile. Heart rhythm sinus. Blood pressure normotensive. Currently on 2L nasal cannula. Lungs sound clear. Abdomen has surgical incision. Dressing intact with
no drainage. Sainz catheter in place, draining without issue. Skin as documented. Discussed plan of care with patient. Vital signs stable at this time.
[2025-06-12 20:19] LABS: Hematocrit 26.8 % (37.0-47.0); Hemoglobin 9.5 g/dL (12.0-16.0)
[2025-06-13] VITALS (16 sets, daily range): BP systolic 122–146; BP diastolic 60–83; BMI 30.1
--- NOTE | 2025-06-13 | PTCARENOTE ---
Pt. assessment remains unchanged. Trending hemoglobin. No bowel movement up to this point during shift. NG tube to LIS, minimal output. Vital signs stable at this time.
[2025-06-13] MEDS: LR 1000 IV ×2 (02:59→13:34)
[2025-06-13 03:13] LABS: Hematocrit 27.2 % (37.0-47.0); Hemoglobin 9.7 g/dL (12.0-16.0); Mean Corp Hgb Conc. 35.7 g/dL (33.0-37.0); Mean Corpuscular Volume 83.7 fL (81.0-99.0); Nucleated Red Blood Cells % 0 %; Platelet Count 192 10^3/uL (130-400); Red Cell Dist. Width 12.8 % (11.5-14.5)
[2025-06-13 03:34] LABS: Blood Urea Nitrogen 13 mg/dl (7-17); Calcium 7.8 mg/dl (8.4-10.2); Carbon Dioxide 25 mmol/L (22-30); Chloride 105 mmol/L (98-107); Estimated Creatinine Clearance 85 ml/min; Glucose 79 mg/dl (70-99); Magnesium 2.1 mg/dl (1.6-2.3); Potassium 3.3 mmol/L (3.5-5.1); Sodium 133 mmol/L (135-145); eGFR > 60.00
--- NOTE | 2025-06-13 04:00 | PTCARENOTE ---
Pt. assessment remains unchanged. AM labs drawn. Vital signs stable at this time.
[2025-06-13] MEDS: POTASSIUM PHOSPHATE 259.0909 MEQ IV (04:47)
[2025-06-13] MEDS: NSS (PRESERVATIVE FREE) 10 ML IV (08:15)
[2025-06-13] MEDS: PROTONIX IV 40 MG IV (08:15)
--- NOTE | 2025-06-13 08:36 | W.PN.CRS1 ---
Today's Communication / Plan
-
NGT clamping trial.
Repeat Hgb if there is evidence of bleeding.
Remove Sainz.
Continue to hold Lovenox and Toradol.
Out of bed today.
Assessment/Plan
-
POD 2/3.
1. Postoperative rectal bleeding with a syncopal episode. Suspect anastomotic source. Given one dose of TXA and holding Toradol, Lovenox, and ASA. Continue knee-high teds/SCDs and ambulation.
2. Hemoglobin is stable after 2 units of blood. No evidence of active bleeding. If the bleeding recurs will consider CT angio or colonoscopy.
3. NGT clamping trial.
4. Remove Sainz.
5. Out of bed today.
6. Hypokalemia and hypophosphatemia. Replacement ordered.
2 of her daughters were present, all questions answered.
Subjective Data
Procedure
R colectomy 06/11/25 (finished morning of 06/11/25)
Subjective Data
Date of Service: June 13, 2025
No complaints. She has no pain or nausea. No bowel movements of flatus but she feels some 'rumblings'.
Objective Data
-
Vital Signs
Temp Pulse Resp BP Pulse Ox
98.2 F 69 16 129/72 99
06/13/25 08:05 06/13/25 07:00 06/13/25 07:00 06/13/25 07:00 06/13/25 07:00
Intake & Output
06/12/25 06/13/25 06/14/25
06:59 06:59 06:59
Intake Total 2230 / 2230 1939 / 2019 160 / 160
Output Total 2660 / 2660 2049 200 / 200
Balance -430 / -430 -110 / -30 -40 / -40
Intake:
Oral fluids 0 / 0
IV fluids (Total) 1000 / 1000 1600 / 1680 160 / 160
Lr 1,000 ml @ 80 mls/hr IV . 320 / 400 160 / 160
[id number] NEHA Rx#:[id number]
NSS bolus 1000 / 1000
Normosol-R/Plasmalyte-A 1,000 1280 / 1280
ml @ 80 mls/hr IV .[id number] NEHA
Rx#:[id number]
IV piggybacks 420 / 420
Amount instilled into GI Tube ( 60 / 60 /
Total)
Martha Sump 60 / 60 90 /
Blood Products 500 / 500
Packed red blood cells 500 / 500
Blood Product Amount Infused ( 250 / 250 250 / 250
mL)
Packed Rbc Leukoreduced Unit 0 / 0 250 / 250
[id number]
Packed Rbc Leukoreduced Unit 250 / 250
[id number]
Output:
Gastrointestinal tube output ( 350 / 350 25 / 25
Total)
Martha Sump 350 / 350 25 / 25
Urine, Sainz 2310 / 2310 2024 / 2024 200 / 200
Other:
Number of unmeasured liquid
stools
Rectum 1
Lab Results
06/13/25 04:00
06/13/25 02:58
Physical Exam
-
General: No Acute Distress
Abdomen: Soft, Non Distended and Non Tender
Extremities: No Edema, No Calf Tenderness and Other (SCD's intact)
Wound: Dressing in Place
[2025-06-13] MEDS: OLOPATADINE 0.1% OPHTHALMIC SOLUTION 1 DROP OPHTH ×2 (09:00→19:55)
[2025-06-13] MEDS: NORVASC PO (09:04)
--- NOTE | 2025-06-13 09:04 | PTCARENOTE ---
Dr. Wilks rounded. Daughters at bedside, all questions answered.
Patient up into chair, denies any dizziness/N/V. NGT clamped. Plan to clamp for 4 hours for clamp trial. Pt aware if she starts to feel nauseous to let staff know. +BS, denies flatus. Denies any abd pain. Abd dressing intact, no drainage. NC 02
removed. Sp02 95-96% on RA. Encouraged I.S. Sainz catheter removed. IVF continue. Call nj within reach. Patient thankful for care.
--- NOTE | 2025-06-13 10:19 | CM ---
Still in ICU chart reviewed
NGT clamping trail today OOB
DC > 48 hours Will assess for needs home with HHC vs home w/o HHC
--- NOTE | 2025-06-13 11:39 | W.PN.INTV ---
Today's Communication / Plan
Recommendations
Follow H&H
Serial abdominal exam
Postoperative care
Transfer to [facility]
Sign off
Assessment
-
69-year-old woman with past medical history noted, initially admitted 06/11/2025 with abdominal distention, abdominal pain. Found to have cecal volvulus. Emergently taken to the operating room and she underwent right hemicolectomy. Transferred to
the floors. Overnight developed a bloody bowel movement with subsequent syncopal episode. Slightly hypotensive that recovered with IV fluid and transfusion. Transferred to the critical care unit for further monitoring.
Acute blood loss anemia-postoperative bloody BM.
Status post transfusion
Syncopal episode after bloody BM postoperatively-possible vasovagal reaction after large bloody bowel movement.
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
Conditions present prior admission:
History of Easton syndrome
Lamb's esophagus
Hypercholesterolemia
Hypertension
Assessment and plan:
Hemodynamically stable overnight
Hemoglobin stable overnight
No further bloody BMs
Relatively asymptomatic
Continue to hold antihypertensive
Continue to hold antiplatelets and NSAIDs
Continue to hold anticoagulation
-
Surgery correspondence reviewed.
Hemoglobin will be repeated only if there is another bleeding episode
Will transfuse as necessary
NG tube clamping trials today
Continue analgesia as necessary
Serial abdominal exams
NG tube in place
N.p.o. per surgery
-
Pain control with narcotics as needed-monitor respiratory status closely
-
Gentle IV fluids
Renal function is normal
Hyponatremia noted
Hypokalemia resolved
Daily labs
-
DVT prophylaxis with SCDs
-
No additional critical care needs.
Transfer to [facility]
Critical care team will sign off. Please call with question
Subjective Dataa
Subjective Data
Date of Service:
Date of Service: June 13, 2025
Chief Complaint: Rubber Cutter Follow Up (Acute blood loss anemia-syncopal episode.)
Subjective:
Patient denies any new complaints
Remained stable overnight
Denies any dizziness
No further bleeding episode
Review of Systems
General: Fever (n)
Cardiopulmonary: Dyspnea (none at rest)
GI: Abdominal Pain (n), Nausea (n) and Vomiting (n)
Objective Data
Data Reviewed
Vital Signs / I&O / Oxygen:
Vital Signs
Temp Pulse Resp BP Pulse Ox
98.2 F 73 22 136/73 97
06/13/25 08:05 06/13/25 10:00 06/13/25 10:00 06/13/25 10:00 06/13/25 10:00
Intake and Output
06/12/25 06/13/25 06/14/25
06:59 06:59 06:59
Intake Total 2230 / 2230 1939 / 2020 320 / 320
Output Total 2660 / 2660 2049 / 2049 200 / 200
Balance -430 / -430 -110 / -30 120 / 120
SaO2 97
Nasal Cannula flow liters per 2
minute
Physical Exam
General: Comfortable
HEENT: Normocephalic
Cardiovascular: S1-S2
Respiratory: Non-Labored Respirations
GI: Soft, Non Distended, Other (Incision is intact) and Other (NG tube in place)
Neurology: Awake
Labs/Micro/Reports
Lab Data
06/13/25 04:00
06/13/25 02:58
--- NOTE | 2025-06-13 13:00 | PTCARENOTE ---
Residual from NGT <20mL after 4 hours clamped. NGT removed per orders. Patient ambulated to BR to void. Denies any pain. Brown smear in BR.
Report called to CHERI Leahy on 2S. Transferred via WC with all belongings. Daughters and at bedside. Patient thankful for care.
Dr. Wilks updated. Plan to start clear liquids.
--- NOTE | 2025-06-13 13:24 | PTCARENOTE ---
Received patient from ICU via wheelchair. Surgical dressing to abdomen with scant shadowing at distal end. VS stable. Patient denies pain. Patient accompanied by family. Patient oriented to room. Call nj in reach.
[2025-06-13 16:35] LABS: Hemoglobin 10.3 g/dL (12.0-16.0)
--- NOTE | 2025-06-13 23:30 | PTCARENOTE ---
Addendum entered by Janet Jensen RN 06/13/25 23:51:
Repeat Hgb 10.5, increased from prior 10.3. Pt and daughters at the bedside updated.
Original Note:
Pt's daughters at the bedside concerned with persistent liquid burgundy colored stools, discussed common stools post-colectomy, emotional reassurance provided. Next H&H due in the AM. 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
further trend hemoglobin from this afternoon.
[2025-06-13 23:46] LABS: Hematocrit 29.5 % (37.0-47.0); Hemoglobin 10.5 g/dL (12.0-16.0)
[2025-06-14 05:40] LABS: Hematocrit 28.5 % (37.0-47.0); Hemoglobin 10.1 g/dL (12.0-16.0); Mean Corp Hgb Conc. 35.4 g/dL (33.0-37.0); Mean Corpuscular Volume 85.3 fL (81.0-99.0); Platelet Count 201 10^3/uL (130-400); Red Cell Dist. Width 12.7 % (11.5-14.5)
[2025-06-14 06:00] VITALS: BMI 29.7
[2025-06-14 06:06] LABS: Blood Urea Nitrogen 10 mg/dl (7-17); Calcium 8.3 mg/dl (8.4-10.2); Carbon Dioxide 28 mmol/L (22-30); Chloride 105 mmol/L (98-107); Estimated Creatinine Clearance 86 ml/min; Glucose 85 mg/dl (70-99); Potassium 3.8 mmol/L (3.5-5.1); Sodium 134 mmol/L (135-145); eGFR > 60.00
[2025-06-14 07:05] VITALS: BP 140/73
[2025-06-14] MEDS: NSS (PRESERVATIVE FREE) 10 ML IV (08:39)
[2025-06-14] MEDS: PROTONIX IV 40 MG IV (08:39)
[2025-06-14] MEDS: NORVASC 5 MG PO (08:39)
[2025-06-14] MEDS: OLOPATADINE 0.1% OPHTHALMIC SOLUTION 1 DROP OPHTH ×2 (08:42→19:47)
--- NOTE | 2025-06-14 10:59 | W.PN.CRS1 ---
Today's Communication / Plan
-
fld
PO analgesics
Assessment/Plan
-
69 yo female presenting with cecal volvulus now POD 3 right colectomy
AFVSS
Acute blood loss anemia from suspected anastomotic bleed early post op, now resolved s/p TXA. H/H stable s/p 2 units of blood 06/12/25
No further blood bleeding
Mild hyponatremia with fluid shifts, stable/improved
Plan:
Advance to FLD
C/W home antihypertensives
OOB to chair/PT following
Stop IVF
CM consulted for VNA arrangements
Analgesics prn, will add prn Tylenol/Tramadol, c/w prn dilaudid for breakthrough
Hold lovenox in setting of recent bleeding, SCDs while in bed for VTE ppx
Subjective Data
Procedure
R colectomy 06/11/25 (finished morning of 06/11/25)
Subjective Data
Date of Service: June 14, 2025
Pt seen and examined at bedside with Dr. Wilks. Denies n/v. Tolerating clears. Passed some maroon stool yesterday but passed brown loose stool today. Not much flatus. Some soreness but not much pain. OOB to chair.
Objective Data
-
Vital Signs
Temp Pulse Resp BP Pulse Ox
98.4 F 74 16 140/73 98
06/14/25 07:05 06/14/25 08:39 06/14/25 07:05 06/14/25 08:39 06/14/25 07:05
Intake & Output
06/13/25 06/14/25 06/15/25
06:59 06:59 06:59
Intake Total 1939 / 2019 320 / 320
Output Total 2049 750 / 750
Balance -110 / -30 -430 / -430
Intake:
Oral fluids 0 / 0
IV fluids (Total) 1600 / 1680 320 / 320
Lr 1,000 ml @ 80 mls/hr IV . 320 / 400 320 / 320
[id number] NEHA Rx#:[id number]
Normosol-R/Plasmalyte-A 1,000 1280 / 1280
ml @ 80 mls/hr IV .[id number] NEHA
Rx#:[id number]
Amount instilled into GI Tube (
Total)
[place] Sump
Blood Product Amount Infused ( 250 / 250
mL)
Packed Rbc Leukoreduced Unit 250 / 250
[id number]
Output:
Gastrointestinal tube output (
Total)
[place] Sump
Urine, Sainz 2024 200 / 200
Urine, Voided 550 / 550
Other:
Number of unmeasured liquid
stools
Rectum 3 1
Lab Results
06/14/25 05:01
06/14/25 05:01
Physical Exam
-
General: No Acute Distress
Abdomen: Soft, Non Distended and Non Tender
Extremities: No Edema and No Calf Tenderness
Skin: Warm
Wound: Dressing Changed (martell removed, yefri intact)
[2025-06-14] MEDS: COZAAR 100 MG PO (11:25)
[2025-06-14] MEDS: ORETIC 25 MG PO (11:25)
--- NOTE | 2025-06-14 14:44 | CM ---
Chart reviewed and plan is to home when stable, plan is to home with family supports and vn services, options reviewed and patient has selected [facility].
Plan; Home with [facility]
[2025-06-14 15:20] VITALS: BP 136/70
[2025-06-14 23:00] VITALS: BP 135/73
[2025-06-15 06:00] VITALS: BMI 29.3
[2025-06-15 07:05] VITALS: BP 126/75
[2025-06-15 08:14] LABS: Hematocrit 29.0 % (37.0-47.0); Hemoglobin 10.1 g/dL (12.0-16.0); Mean Corp Hgb Conc. 34.8 g/dL (33.0-37.0); Mean Corpuscular Volume 87.1 fL (81.0-99.0); Platelet Count 241 10^3/uL (130-400); Red Cell Dist. Width 13.0 % (11.5-14.5)
[2025-06-15 08:38] LABS: Blood Urea Nitrogen 7 mg/dl (7-17); Calcium 8.9 mg/dl (8.4-10.2); Carbon Dioxide 30 mmol/L (22-30); Chloride 103 mmol/L (98-107); Estimated Creatinine Clearance 85 ml/min; Glucose 95 mg/dl (70-99); Potassium 4.5 mmol/L (3.5-5.1); Sodium 135 mmol/L (135-145); eGFR > 60.00
[2025-06-15] MEDS: NSS (PRESERVATIVE FREE) 10 ML IV (08:40)
[2025-06-15] MEDS: PROTONIX IV 40 MG IV (08:41)
[2025-06-15] MEDS: COZAAR 100 MG PO (08:41)
[2025-06-15] MEDS: OLOPATADINE 0.1% OPHTHALMIC SOLUTION 1 DROP OPHTH ×2 (08:41→19:56)
[2025-06-15] MEDS: NORVASC 5 MG PO (08:42)
[2025-06-15] MEDS: ORETIC 25 MG PO (08:42)
[2025-06-15] MEDS: ASPIR LOW (ENTERIC COATED) 81 MG PO (11:01)
--- NOTE | 2025-06-15 11:34 | W.PN.CRS1 ---
Today's Communication / Plan
-
Advance diet
Assessment/Plan
-
69 yo female presenting with cecal volvulus now POD 4 right colectomy
AFVSS
H/H stable s/p TXA and 2 units of blood 06/12/25
No further blood bleeding
Hyponatremia resolved
Plan:
Advance to LRD
C/W home meds, resume ASA
OOB to chair/PT following
VNA arranged for d/c
Analgesics with prn Tylenol/Tramadol
Hold lovenox in setting of recent bleeding, SCDs while in bed for VTE ppx
Anticipate d/c home tomorrow if tolerating diet
Subjective Data
Procedure
R colectomy 06/11/25 (finished morning of 06/11/25)
Subjective Data
Date of Service: June 15, 2025
Pt seen and examined at bedside with Dr Wilks. Her daughter was present and questions addressed. Denies n/v. Passing some flatus with some loose brown fecal material. No further maroon stools. Minimal discomfort.
Objective Data
-
Vital Signs
Temp Pulse Resp BP Pulse Ox
98.5 F 82 18 126/75 99
06/15/25 07:05 06/15/25 08:42 06/15/25 07:05 06/15/25 08:42 06/15/25 07:05
Intake & Output
06/14/25 06/15/25 06/16/25
06:59 06:59 06:59
Intake Total 320 / 320 720 / 720 480 / 480
Output Total 750 / 750
Balance -430 / -430 720 / 720 480 / 480
Intake:
Oral fluids 720 / 720 480 / 480
IV fluids (Total) 320 / 320
Lr 1,000 ml @ 80 mls/hr IV . 320 / 320
[id number] NEHA Rx#:[id number]
Output:
Urine, Sainz 200 / 200
Urine, Voided 550 / 550
Other:
Number of approximated MODERATE 2
amounts of urine
Number of unmeasured liquid
stools
Rectum 3 1
Lab Results
06/15/25 07:28
06/15/25 07:28
Physical Exam
-
General: No Acute Distress
Abdomen: Soft, Non Distended and Non Tender
Extremities: No Edema and No Calf Tenderness
Skin: Warm
Wound: Dressing in Place
Incision: Other (yefri intact, [address] no drainage)
[2025-06-15 15:00] VITALS: BP 112/68
[2025-06-15 23:03] VITALS: BP 116/65
[2025-06-16 06:00] VITALS: BMI 28.7
[2025-06-16 07:01] LABS: Hematocrit 28.6 % (37.0-47.0); Hemoglobin 9.7 g/dL (12.0-16.0); Mean Corp Hgb Conc. 33.9 g/dL (33.0-37.0); Mean Corpuscular Volume 86.9 fL (81.0-99.0); Platelet Count 254 10^3/uL (130-400); Red Cell Dist. Width 13.3 % (11.5-14.5)
[2025-06-16 07:10] VITALS: BP 129/74
[2025-06-16] MEDS: OLOPATADINE 0.1% OPHTHALMIC SOLUTION 1 DROP OPHTH (08:28)
[2025-06-16] MEDS: ORETIC 25 MG PO (08:29)
[2025-06-16] MEDS: COZAAR 100 MG PO (08:29)
[2025-06-16] MEDS: PROTONIX 40 MG PO (08:29)
[2025-06-16] MEDS: NORVASC 5 MG PO (08:29)
[2025-06-16] MEDS: ASPIR LOW (ENTERIC COATED) 81 MG PO (08:29)
[2025-06-16] MEDS: CRESTOR 5 MG PO (08:31)
--- NOTE | 2025-06-16 10:36 | W.PN.CRS1 ---
Today's Communication / Plan
-
discharge with VN
Assessment/Plan
-
69 yo female presenting with cecal volvulus, POD# 5 right colectomy
Vitals normal
H/H stable s/p TXA and 2 units of blood 06/12/25
No further blood bleeding
Plan:
-Continue low residue diet
-C/W home meds, resume ASA
-OOB to chair/PT following
-VNA arranged for d/c
-Analgesics with prn Tylenol/Tramadol
-2 martell in incision removed at bedside
-Okay for discharge today with VN. All discharge instructions discussed with the patient/family including medications, activity levels, and follow up. All questions addressed.
Subjective Data
Procedure
R colectomy 06/11/25 (finished morning of 06/11/25)
Subjective Data
Date of Service: June 16, 2025
Patient states she feels well. She is tolerating a diet. Denies nausea or vomiting. Currently has no complaints.
Objective Data
-
Vital Signs
Temp Pulse Resp BP Pulse Ox
98.3 F 80 16 121/73 95
06/16/25 07:10 06/16/25 08:29 06/16/25 07:10 06/16/25 08:29 06/16/25 07:10
Intake & Output
06/15/25 06/16/25 06/17/25
06:59 06:59 06:59
Intake Total 720 / 720 480 / 480
Balance 720 / 720 480 / 480
Intake:
Oral fluids 720 / 720 480 / 480
Other:
Number of approximated MODERATE 2 2
amounts of urine
Number of unmeasured liquid
stools
Rectum 1
Lab Results
06/16/25 06:02
06/15/25 07:28
Physical Exam
-
General: No Acute Distress and AOx3
Abdomen: Soft, Non Distended and Non Tender
Skin: Warm and Dry
Wound: Dressing Changed (two martell removed)
Incision: Clear, Dry, Intact
--- NOTE | 2025-06-16 10:43 | W.DCSUMMARY ---
Discharge Summary
Discharge Data
Date of Admission: 06/11/25
Date of Discharge: 06/16/25
-
Pending Results: Yes
Additional Pending Results:
pathology
Hospital Course
69-year-old female presented to [facility] complaining of abdominal pain and distention. The CAT scan showed a 10 cm cecum and left upper quadrant cecal volvulus. There is taken to the operating room by Dr. Garner for a right colectomy. An
NG tube was left in place postoperatively. She was brought back to the medical surgical floor. On postop day 1 Lovenox was started for DVT prophylaxis. On postop day 2 in the legal director she had a rapid response called due to a large bloody
bowel movement and she appeared pale and nauseous. TXA and 2 packed red blood cells were given.) she checked every 6 hours. There was no further bleeding since that episode. On postop day 3 her NG tube was removed as well as her Sainz. Her diet
was slowly advanced from a clear liquid diet to low residue diet. On postop day 5 the patient stated she was feeling well. She was tolerating diet and she had no further bloody bowel movements. She denied nausea or vomiting. She felt well enough
to go home. All discharge instructions were discussed with the patient and family including medications, activity levels, follow-up. All questions were addressed. She was discharged home with a visiting nurse. Pathology was pending at the time
of discharge.
Discharge Plan
-
Patient Disposition: Home with Home Care
Discharge Diagnosis/Procedures: Cecal volvulus status post right colectomy
Diet: Low Fiber
Activity: No strenuous activity
Additional Activity: Do not lift over 10lbs (gallon of milk)
Driving Restrictions: Wait until comfortable twisting/off narcotics
Bathing Restrictions: OK to Shower
Wound Care: cover your incision with dry gauze dressing and change daily. Once drainage no longer present, ok to leave incision open to air (no dressing). Nieves will be removed 1-2 weeks after your surgery at your follow up appointment with your
surgeon.
Activity Restrictions/Additional Instructions:
Call you surgeon if you have fevers >100.5, nausea with vomiting or worsening abdominal pain
Instructions: Low-fiber diet
Referrals:
Marquez Garner MD [Active, ColoRectal] - in one to two weeks
Rut Renteria NP [Family Provider, General]
Prescriptions:
New
acetaminophen [acetaminophen] 325 mg tablet
650 mg PO Q4HPRN PRN (Reason: mild pain) Qty: 1 0RF
oxycodone 5 mg tablet
5 mg PO Q6H PRN (Reason: Pain) Qty: 20 0RF
Continued
omeprazole capsule
30 mg PO 1XD
rosuvastatin 5 mg Tablet
5 mg PO MUST ENTER TIMES
Rx Instructions:
2 times per week
aspirin 81 mg Tablet
81 mg PO DAILY
vitamin D3-vitamin K2
4,000 units PO 1XD
Rx Instructions:
4000u/100
azelastine 0.05 % Drops
1 drp OPHTHALMIC (EYE) BID
amlodipine 5 mg Tablet
5 mg PO DAILY
magnesium glycinate 120 mg Capsule
120 mg PO QHS
olmesartan-hydrochlorothiazide 40-25 mg tablet
1 tab PO DAILY
Discharge Orders:
Discharge Patient (As Directed); Ordered 06/16/25
Ordered By: Brunilda Suazo
Discharge Date and Time
Print Language: [place]
--- NOTE | 2025-06-16 11:58 | CM ---
Patient has been medically cleared for discharge to home with [facility] RN services. Family will transport home.
--- NOTE | 2025-06-16 12:00 | VNURNOTE ---
Home Health Liaison met with patient and family at bedside to discuss [facility] nurse/therapy, visits, schedule and homebound status. Patient is agreeable and understands that visits at home will be 2-3 x per week to assess and teach medical
management.
Patient is aware that [facility] will contact them for start of care within a week after discharge from . Provided contact number for [facility].
[facility] referral accepted in [facility].
[2025-06-16 12:08] VITALS: BP 116/73
== END 2025-06-16 12:10 | disposition home health service (06) | DRG 330 ==
LOC: 2 SOUTH 01:32
PROVIDERS: Nurse Practitioner Family; Physician Assistant; Registered Nurse; Surgery; ADMITTING PHYSICIAN Surgery; CONSULT PHYSICIAN Internal Medicine Critical Care Medicine; EMERGENCY PHYSICIAN Emergency Medicine; FAMILY PHYSICIAN Nurse Practitioner Gerontology
PROC: 0DTF0ZZ Resection of Right Large Intestine, Open Approach (ICD-10-PCS; 2025-06-11)
PROC: 30233N1 Transfusion of Nonautologous Red Blood Cells into Peripheral Vein, Percutaneous Approach (ICD-10-PCS; 2025-06-12)
DX: K56.2 Volvulus (principal); D62 Acute posthemorrhagic anemia; K91.840 Postprocedural hemorrhage of a digestive system organ or structure following a digestive system procedure; E87.1 Hypo-osmolality and hyponatremia; I10 Essential (primary) hypertension; E78.00 Pure hypercholesterolemia, unspecified; K22.70 Barrett's esophagus without dysplasia; G47.33 Obstructive sleep apnea (adult) (pediatric); E87.6 Hypokalemia; K21.9 Gastro-esophageal reflux disease without esophagitis; Y83.8 Other surgical procedures as the cause of abnormal reaction of the patient, or of later complication, without mention of misadventure at the time of the procedure; R55 Syncope and collapse; E83.39 Other disorders of phosphorus metabolism; Z15.060 Genetic susceptibility to colorectal cancer; Z86.0100 Personal history of colon polyps, unspecified; Z87.19 Personal history of other diseases of the digestive system; Z79.82 Long term (current) use of aspirin
CPT/HCPCS: 71045; 74177; 80048; 80053; 82962; 83605; 83690; 83735; 84100; 84484; 85014; 85018; 85025; 85027; 85610; 85730; 86850; 86900; 86901; 86920; 88307; 93005; 96361; 96374; 96376; 97116; 97162; 99284; P9016; Q9967